=== PATIENT | female | born 1965 | race Hispanic/Latino ===

== ENCOUNTER → 2025-01-27 | Outpatient (CLI) | payer BC ==
--- NOTE | 2025-02-02 16:26 | HMCIMG ---
CR RIGHT FOOT, 2 VIEW Clinical History: Contusion of right foot Technique: Two standard radiographic views of the right foot were obtained. Findings: Bones: Suspicious undisplaced hairline fracture is noted through the distal phalanx of the great toe. This finding requires further confirmation with CT. No other acute fracture or aggressive osseous lesion is identified. Joints: The joint spaces appear within normal limits. No dislocation is seen. Soft Tissues: The soft tissues are unremarkable. IMPRESSION: 1. Suspicious undisplaced hairline fracture of the base of the distal phalanx of the right great toe. /[place]
== END | disposition home or self-care (01) ==
LOC: RAH 15:33
PROVIDERS: ATTEND Internal Medicine
DX: S90.31XA Contusion of right foot, initial encounter (principal); X58.XXXA Exposure to other specified factors, initial encounter; Y93.89 Activity, other specified; Y92.89 Other specified places as the place of occurrence of the external cause; Y99.8 Other external cause status
CPT/HCPCS: 73620